=== PATIENT | female | born 1970 | race Native Hawaiian/Other Pacific Islander ===

== ENCOUNTER 2018-01-04 23:08 | Inpatient (IN) | payer MEDICARE, MEDICAID ==
[~2018-01-04] VITALS: Ht 157.5 cm; Wt 126.5 kg
[~2018-01-04 23:08] MED LIST: DIPH25CA39 PO; DULO20CA PO; FURO20TA PO; LEVE100012 PO; OMEP20TA44 PO; PHEN-250 PO; POTA8TAB2 PO; WARF1TAB36 PO
[2018-01-05 01:32] LABS: Basophils # (auto) 0.1 uL; Eosinophils # (auto) 0.2 uL; Hematocrit 42.4 % (36.0-46.0); Hemoglobin 13.9 g/dL (12.2-16.2); Lymphocytes # (auto) 1.6 uL; Mean Corpuscular Hemoglobin 31.7 pg (28.0-32.0); Mean Corpuscular Hgb Conc. 32.9 g/dL (32.0-36.0); Mean Corpuscular Volume 96.3 fL (80.0-100.0); Monocytes # (auto) 0.8 uL; Monocytes % (auto) 9.6 % (0.0-12.0); Neutrophils # (auto) 5.6 uL; Neutrophils % (auto) 67.4 % (37.0-80.0); Nucleated Red Blood Cells % 0.1 %; Platelet Count (auto) 185 10^3/uL (140-450); Red Cell Distribution Width 14.8 % (11.8-14.3); White Blood Cell 8.3 10^3/uL (4.4-10.8)
[2018-01-05 01:47] LABS: Alanine Aminotransferase 27 U/L (13-56); Albumin 3.4 g/dL (3.4-5.0); Anion Gap 9 (5-15); Aspartate Aminotransferase 37 U/L (15-37); BUN/Creatinine Ratio 21.9; Blood Urea Nitrogen 16 mg/dL (7-18); Calcium 8.1 mg/dL (8.5-10.1); Carbon Dioxide 24 mmol/L (21-32); Chloride 107 mmol/L (98-107); GFR African American 110 mL/min; GFR Non-African American 91 mL/min; Glucose 85 mg/dL (74-106); Potassium 3.8 mmol/L (3.5-5.1); Sodium 140 mmol/L (136-145)
[2018-01-05 01:52] LABS: Alkaline Phosphatase 145 U/L (45-117); Bilirubin, Total 0.4 mg/dL (0.2-1.0)
[2018-01-05] MEDS ORDERED: HYDROcodone-ACET 10/325MG TAB PO ONE (04:15)
[2018-01-05] MEDS ORDERED: ONDANSETRON HCL 4 MG/2 ML VIAL IV ONE (04:30)
[2018-01-05] MEDS ORDERED: NALBUPHINE HCL 10 MG/1ml INJECTION IV ONE (04:30)
[2018-01-05] MEDS ORDERED: LORazepam 2MG/ML-1ML VIAL ONE (05:09)
[2018-01-05] MEDS ORDERED: LEVETIRACETAM INJ 1,000 MG in D5W 5% 100 ML IV ONE (05:15)
[2018-01-05] MEDS ORDERED: LORazepam 2MG/ML-1ML VIAL IV ONE (05:15)
[2018-01-05] MEDS ORDERED: LEVETIRACETAM 500 MG/5ML INJ IV ONE (05:32)
[2018-01-05] MEDS ORDERED: ONDANSETRON HCL 4 MG/2 ML VIAL IV PRN (06:15)
[2018-01-05] MEDS ORDERED: NITROGLYCERIN 0.4 MG SL TAB SL PRN (06:15)
[2018-01-05] MEDS ORDERED: MORPHINE SULF INJ 2 MG/ML SYRINGE 1ML IV PRN (06:15)
[2018-01-05 08:05] LABS: INR 3.18 (0.9-1.15); Partial Thromboplastin Time 37.6 sec (23.78-33.04); Prothrombin Time 31.9 sec (9.27-12.13)
[2018-01-05 08:29] VITALS: BP 90/67
[2018-01-05 08:35] VITALS: BP 90/67
[2018-01-05] MEDS: DULoxetine HCL 30 MG CAP PO SCH ×2 (09:37→13:18)
[2018-01-05] MEDS: LORazepam 2MG/ML-1ML VIAL IV PRN (09:37)
[2018-01-05] MEDS: LEVETIRACETAM 500 MG TAB PO SCH ×3 (09:38→21:54)
[2018-01-05] MEDS: PHENYTOIN 100 MG/4 ML SUSP PO SCH ×3 (09:38→21:54)
[2018-01-05] MEDS: FUROSEMIDE 40 MG TAB PO SCH ×2 (09:38→13:19)
[2018-01-05] MEDS: FAMOTIDINE 20 MG TAB PO SCH ×3 (09:39→21:54)
[2018-01-05] MEDS ORDERED: PHENYTOIN SODIUM 100 MG CAP PO SCH (10:00)
[2018-01-05] MEDS ORDERED: FURO40TA4 PO (10:24)
[2018-01-05] MEDS ORDERED: PHEN-250 PO (10:24)
[2018-01-05] MEDS ORDERED: DIPH50TA9 PO (10:24)
[2018-01-05] MEDS ORDERED: POTA1TAB61 PO (10:24)
[2018-01-05 12:00] VITALS: BP 105/65
[2018-01-05] MEDS: ACETAMINOPHEN 325 MG TAB PO PRN (16:05)
[2018-01-05 16:11] VITALS: BP 108/61
[2018-01-05] MEDS ORDERED: POTASSIUM CHL 20 Meq TABLET PO ONE (16:45)
[2018-01-05] MEDS ORDERED: WARFARIN SODIUM 2.5 MG TAB PO ONE ×2 (17:00→18:00)
[2018-01-05] MEDS: diphenhdrAMINE HCL 25 MG CAP PO PRN (17:38)
[2018-01-05] MEDS: Ensure Enlive Strawberry 8oz Bottle PO SCH (17:39)
[2018-01-05 22:00] VITALS: BP 122/62
[2018-01-05] MEDS ORDERED: POTASSIUM CHL 20 Meq TABLET PO SCH (22:00)
[2018-01-06] MEDS: HYDROcodone-ACET 5/325MG TAB PO PRN ×2 (00:22→06:14)
[2018-01-06] MEDS: TEMAZEPAM 15 MG CAP PO PRN (00:27)
[2018-01-06] MEDS: ACETAMINOPHEN 325 MG TAB PO PRN (04:29)
[2018-01-06 04:48] VITALS: BP 128/62
[2018-01-06 06:07] LABS: Basophils # (auto) 0.1 uL; Basophils % (auto) 0.7 % (0.0-2.0); Eosinophils # (auto) 0.3 uL; Eosinophils % (auto) 3.2 % (0.0-7.0); Hematocrit 40.1 % (36.0-46.0); Lymphocytes # (auto) 1.6 uL; Lymphocytes % (auto) 20.1 % (10.0-50.0); Mean Corpuscular Hemoglobin 31.1 pg (28.0-32.0); Mean Corpuscular Hgb Conc. 32.5 g/dL (32.0-36.0); Mean Corpuscular Volume 95.7 fL (80.0-100.0); Monocytes # (auto) 0.6 uL; Monocytes % (auto) 7.6 % (0.0-12.0); Neutrophils # (auto) 5.3 uL; Neutrophils % (auto) 68.4 % (37.0-80.0); Platelet Count (auto) 169 10^3/uL (140-450); Red Blood Cells 4.19 10^6/uL (4.0-5.20); Red Cell Distribution Width 15.1 % (11.8-14.3); White Blood Cell 7.8 10^3/uL (4.4-10.8)
[2018-01-06 06:21] LABS: INR 2.05 (0.9-1.15); Prothrombin Time 21.1 sec (9.27-12.13)
[2018-01-06 06:23] LABS: Albumin 3.1 g/dL (3.4-5.0); Calcium 8.1 mg/dL (8.5-10.1); Potassium 3.9 mmol/L (3.5-5.1)
[2018-01-06 06:25] LABS: BUN/Creatinine Ratio 20.3
[2018-01-06] MEDS: LORazepam 2MG/ML-1ML VIAL IV PRN (06:25)
[2018-01-06 06:40] LABS: Bilirubin, Total 0.5 mg/dL (0.2-1.0); Total Protein 7.3 g/dL (6.4-8.2)
[2018-01-06] MEDS: Ensure Enlive Strawberry 8oz Bottle PO SCH ×3 (08:22→17:14)
[2018-01-06 09:00] VITALS: BP 109/76
[2018-01-06] MEDS: DULoxetine HCL 30 MG CAP PO SCH (09:49)
[2018-01-06] MEDS: PHENYTOIN 100 MG/4 ML SUSP PO SCH (09:49)
[2018-01-06] MEDS: POTASSIUM CHL 20 Meq TABLET PO SCH (09:50)
[2018-01-06] MEDS: FUROSEMIDE 40 MG TAB PO SCH (09:50)
[2018-01-06] MEDS: FAMOTIDINE 20 MG TAB PO SCH ×2 (09:50→21:33)
[2018-01-06] MEDS: LEVETIRACETAM 500 MG TAB PO SCH ×2 (09:51→21:33)
[2018-01-06 13:00] VITALS: BP 106/66
[2018-01-06] MEDS: MORPHINE SULFATE 4 MG/ML SYR/VIAL IV PRN ×2 (13:23→19:57)
[2018-01-06 17:00] VITALS: BP 102/66
[2018-01-06] MEDS ORDERED: WARFARIN SODIUM 5 MG TAB PO ONE (17:00)
[2018-01-06 21:00] VITALS: BP 131/65
[2018-01-07] MEDS: MORPHINE SULFATE 4 MG/ML SYR/VIAL IV PRN ×3 (02:04→18:46)
[2018-01-07 04:05] VITALS: BP 119/72
[2018-01-07] MEDS: ACETAMINOPHEN 325 MG TAB PO PRN ×2 (05:46→21:05)
[2018-01-07 06:13] LABS: INR 1.73 (0.9-1.15); Partial Thromboplastin Time 36.2 sec (23.78-33.04); Prothrombin Time 17.9 sec (9.27-12.13)
[2018-01-07 08:00] VITALS: BP 75/72
[2018-01-07] MEDS: Ensure Enlive Strawberry 8oz Bottle PO SCH ×3 (08:00→18:00)
[2018-01-07 09:00] VITALS: BP 135/73
[2018-01-07] MEDS ORDERED: MORPHINE SULFATE 4 MG/ML SYR/VIAL ONE (09:42)
[2018-01-07] MEDS: FUROSEMIDE 40 MG TAB PO SCH (09:56)
[2018-01-07] MEDS: FAMOTIDINE 20 MG TAB PO SCH ×2 (09:56→22:38)
[2018-01-07] MEDS: POTASSIUM CHL 20 Meq TABLET PO SCH (09:58)
[2018-01-07] MEDS: DULoxetine HCL 30 MG CAP PO SCH (10:00)
[2018-01-07] MEDS: LEVETIRACETAM 500 MG TAB PO SCH ×2 (10:01→22:38)
[2018-01-07 13:00] VITALS: BP 119/76
[2018-01-07 17:00] VITALS: BP 125/68
[2018-01-07] MEDS ORDERED: WARFARIN SODIUM 2.5 MG TAB PO ONE (17:00)
[2018-01-07 19:39] LABS: Alcohol, Urine < 3.0 mg/dL (0-5); Amphetamine Screen, Urine NEGATIVE (NEGATIVE); Barbiturate Scree,Urine NEGATIVE (NEGATIVE); Benzodiazephine Screen, Urine NEGATIVE (NEGATIVE); Cannabinoid Screen, Urine NEGATIVE (NEGATIVE); Cocaine Screen, Urine NEGATIVE (NEGATIVE); Opiate Scree,Urine POSITIVE (NEGATIVE); Phencyclidine Screen, Urine NEGATIVE (NEGATIVE)
[2018-01-07 22:00] VITALS: BP 100/71
[2018-01-08] MEDS: MORPHINE SULFATE 4 MG/ML SYR/VIAL IV PRN ×2 (02:34→20:36)
[2018-01-08 05:00] VITALS: BP 104/71
[2018-01-08 05:39] LABS: Basophils # (auto) 0 uL; Basophils % (auto) 0.4 % (0.0-2.0); Eosinophils # (auto) 0.2 uL; Eosinophils % (auto) 3.5 % (0.0-7.0); Hematocrit 39.1 % (36.0-46.0); Hemoglobin 12.9 g/dL (12.2-16.2); Lymphocytes # (auto) 1.1 uL; Lymphocytes % (auto) 16.3 % (10.0-50.0); Mean Corpuscular Hemoglobin 31.6 pg (28.0-32.0); Mean Corpuscular Hgb Conc. 32.9 g/dL (32.0-36.0); Monocytes # (auto) 0.7 uL; Monocytes % (auto) 9.3 % (0.0-12.0); Neutrophils # (auto) 4.9 uL; Neutrophils % (auto) 70.5 % (37.0-80.0); Platelet Count (auto) 153 10^3/uL (140-450); Red Blood Cells 4.08 10^6/uL (4.0-5.20); Red Cell Distribution Width 14.7 % (11.8-14.3)
[2018-01-08 05:50] LABS: INR 1.53 (0.9-1.15)
[2018-01-08 08:00] VITALS: BP 98/71
[2018-01-08] MEDS: Ensure Enlive Strawberry 8oz Bottle PO SCH ×3 (08:00→18:08)
[2018-01-08] MEDS ORDERED: ADENOSINE 104 MG in GIVE UN-DILUTED 0 ML IV STA (09:02)
[2018-01-08] MEDS: LEVETIRACETAM 500 MG TAB PO SCH ×2 (10:00→21:35)
[2018-01-08] MEDS: FUROSEMIDE 40 MG TAB PO SCH (10:00)
[2018-01-08] MEDS: FAMOTIDINE 20 MG TAB PO SCH ×2 (10:00→21:32)
[2018-01-08] MEDS: POTASSIUM CHL 20 Meq TABLET PO SCH (11:55)
[2018-01-08] MEDS: DULoxetine HCL 30 MG CAP PO SCH (11:55)
[2018-01-08 12:00] VITALS: BP 104/68
[2018-01-08] MEDS: ACETAMINOPHEN 325 MG TAB PO PRN (12:22)
[2018-01-08 17:00] VITALS: BP 96/63
[2018-01-08] MEDS ORDERED: WARFARIN SODIUM 10 MG TAB PO ONE (17:00)
[2018-01-08] MEDS: diphenhdrAMINE HCL 25 MG CAP PO PRN (20:34)
[2018-01-08] MEDS: TEMAZEPAM 15 MG CAP PO PRN (21:32)
[2018-01-08] MEDS: SODIUM CHLORIDE 0.9% 1,000 ML IV SCH (21:38)
[2018-01-08 22:00] VITALS: BP 117/66
[2018-01-09] MEDS: LORazepam 2MG/ML-1ML VIAL IV PRN (04:05)
[2018-01-09] MEDS: MORPHINE SULFATE 4 MG/ML SYR/VIAL IV PRN ×4 (04:14→22:02)
[2018-01-09 06:04] LABS: INR 1.72 (0.9-1.15); Prothrombin Time 17.8 sec (9.27-12.13)
[2018-01-09] MEDS: Ensure Enlive Strawberry 8oz Bottle PO SCH ×3 (08:00→18:10)
[2018-01-09] MEDS: FAMOTIDINE 20 MG TAB PO SCH ×2 (08:49→21:45)
[2018-01-09] MEDS: DULoxetine HCL 30 MG CAP PO SCH (08:49)
[2018-01-09] MEDS: POTASSIUM CHL 20 Meq TABLET PO SCH (08:51)
[2018-01-09] MEDS: LEVETIRACETAM 500 MG TAB PO SCH ×2 (08:51→21:45)
[2018-01-09] MEDS: FUROSEMIDE 40 MG TAB PO SCH (08:52)
[2018-01-09 09:00] VITALS: BP 120/70
[2018-01-09] MEDS ORDERED: MORPHINE SULFATE 4 MG/ML SYR/VIAL ONE (09:00)
[2018-01-09] MEDS: SODIUM CHLORIDE 0.9% 1,000 ML IV SCH ×2 (09:24→22:25)
[2018-01-09 13:00] VITALS: BP 119/68
[2018-01-09 16:56] VITALS: BP 104/63
[2018-01-09] MEDS ORDERED: WARFARIN SODIUM 2 MG TAB PO ONE (17:00)
[2018-01-09] MEDS: diphenhdrAMINE HCL 25 MG CAP PO PRN (22:03)
[2018-01-10] MEDS: MORPHINE SULFATE 4 MG/ML SYR/VIAL IV PRN ×3 (04:58→21:28)
[2018-01-10 05:00] VITALS: BP 122/72
[2018-01-10] MEDS: diphenhdrAMINE HCL 25 MG CAP PO PRN ×2 (06:17→21:28)
[2018-01-10 07:13] LABS: INR 2.29 (0.9-1.15); Partial Thromboplastin Time 33.6 sec (23.78-33.04); Prothrombin Time 23.4 sec (9.27-12.13)
[2018-01-10] MEDS: Ensure Enlive Strawberry 8oz Bottle PO SCH ×3 (08:00→18:00)
[2018-01-10 08:13] VITALS: BP 142/81
[2018-01-10] MEDS ORDERED: ADENOSINE 107 MG in GIVE UN-DILUTED 0 ML IV ONE (08:45)
[2018-01-10] MEDS: DULoxetine HCL 30 MG CAP PO SCH (08:55)
[2018-01-10] MEDS: FAMOTIDINE 20 MG TAB PO SCH ×2 (08:56→23:12)
[2018-01-10] MEDS: LEVETIRACETAM 500 MG TAB PO SCH ×2 (08:56→21:29)
[2018-01-10 09:10] VITALS: BP 114/66
[2018-01-10] MEDS ORDERED: HYDROcodone-ACET 5/325MG TAB PO PRN (09:15)
[2018-01-10] MEDS: LORazepam 2MG/ML-1ML VIAL IV PRN (09:35)
[2018-01-10] MEDS: POTASSIUM CHL 20 Meq TABLET PO SCH (11:06)
[2018-01-10] MEDS: FUROSEMIDE 40 MG TAB PO SCH (11:07)
[2018-01-10] MEDS: SODIUM CHLORIDE 0.9% 1,000 ML IV SCH (11:45)
[2018-01-10 13:00] VITALS: BP 127/74
[2018-01-10 16:20] VITALS: BP 120/68
[2018-01-10] MEDS ORDERED: WARFARIN SODIUM 2.5 MG TAB PO ONE (17:00)
[2018-01-10] MEDS ORDERED: WARFARIN SODIUM 2 MG TAB PO ONE (17:00)
[2018-01-10 21:30] VITALS: BP 118/88
[2018-01-11] MEDS: SODIUM CHLORIDE 0.9% 1,000 ML IV SCH (01:05)
[2018-01-11 05:00] VITALS: BP 105/82
[2018-01-11] MEDS: MORPHINE SULFATE 4 MG/ML SYR/VIAL IV PRN (05:47)
[2018-01-11 05:56] VITALS: BP 125/70
[2018-01-11 06:11] LABS: Basophils # (auto) 0 uL; Basophils % (auto) 0.4 % (0.0-2.0); Eosinophils # (auto) 0.2 uL; Eosinophils % (auto) 3.5 % (0.0-7.0); Hematocrit 38.5 % (36.0-46.0); Hemoglobin 12.9 g/dL (12.2-16.2); Lymphocytes % (auto) 14.7 % (10.0-50.0); Mean Corpuscular Hemoglobin 31.9 pg (28.0-32.0); Mean Corpuscular Hgb Conc. 33.4 g/dL (32.0-36.0); Mean Corpuscular Volume 95.3 fL (80.0-100.0); Monocytes # (auto) 0.6 uL; Monocytes % (auto) 8.3 % (0.0-12.0); Neutrophils # (auto) 5.1 uL; Neutrophils % (auto) 73.1 % (37.0-80.0); Nucleated Red Blood Cells % 0.1 %; Platelet Count (auto) 147 10^3/uL (140-450); Red Blood Cells 4.04 10^6/uL (4.0-5.20); Red Cell Distribution Width 14.5 % (11.8-14.3)
[2018-01-11 06:21] LABS: INR 2.44 (0.9-1.15); Prothrombin Time 24.8 sec (9.27-12.13)
[2018-01-11 06:32] LABS: Albumin 3.1 g/dL (3.4-5.0); BUN/Creatinine Ratio 23.1; Calcium 7.8 mg/dL (8.5-10.1); Potassium 3.9 mmol/L (3.5-5.1)
[2018-01-11 06:34] LABS: Bilirubin, Total 0.6 mg/dL (0.2-1.0); Total Protein 7.2 g/dL (6.4-8.2)
[2018-01-11 09:00] VITALS: BP 112/64
[2018-01-11] MEDS: FAMOTIDINE 20 MG TAB PO SCH (09:24)
[2018-01-11] MEDS: DULoxetine HCL 30 MG CAP PO SCH (09:24)
[2018-01-11] MEDS: LEVETIRACETAM 500 MG TAB PO SCH (09:25)
[2018-01-11] MEDS: POTASSIUM CHL 20 Meq TABLET PO SCH (09:25)
[2018-01-11] MEDS: FUROSEMIDE 40 MG TAB PO SCH (09:25)
[2018-01-11] MEDS: Ensure Enlive Strawberry 8oz Bottle PO SCH (09:33)
[2018-01-11 13:00] VITALS: BP 143/66
[2018-01-11 13:29] VITALS: BP 143/66
[2018-01-11] MEDS ORDERED: WARFARIN SODIUM 2.5 MG TAB PO ONE (17:00)
== END 2018-01-11 15:30 | disposition home or self-care (01) | DRG 101 ==
LOC: ER 23:08 → EDBD 23:08 → TELE 23:09 → TELE-WESTW 01-05 08:34
PROVIDERS: ADMIT Nurse Practitioner; ATTEND Family Medicine
DX: G40.909 Epilepsy, unspecified, not intractable, without status epilepticus (principal); I69.351 Hemiplegia and hemiparesis following cerebral infarction affecting right dominant side; Z68.43 Body mass index [BMI] 50.0-59.9, adult; E66.01 Morbid (severe) obesity due to excess calories; I11.0 Hypertensive heart disease with heart failure; I50.9 Heart failure, unspecified; I48.2 Chronic atrial fibrillation; F32.9 Major depressive disorder, single episode, unspecified; M54.5 Low back pain; I08.0 Rheumatic disorders of both mitral and aortic valves; G43.909 Migraine, unspecified, not intractable, without status migrainosus; G89.29 Other chronic pain; H55.00 Unspecified nystagmus; I25.10 Atherosclerotic heart disease of native coronary artery without angina pectoris; Z95.1 Presence of aortocoronary bypass graft; Z95.2 Presence of prosthetic heart valve; Z74.01 Bed confinement status; I69.322 Dysarthria following cerebral infarction; Z88.6 Allergy status to analgesic agent
CPT/HCPCS: 36415; 36600; 70450; 71045; 78452; 80053; 80307; 80320; 82805; 83880; 84484; 85025; 85379; 85610; 85730; 92610; 93005; 93017; 93306; 93886; 94761; 96365; 96375; 97163; J0153; J2405; J7060

== ENCOUNTER 2018-03-25 21:06 | Emergency (ER) | payer MEDICARE, MEDICAID ==
[~2018-03-25] VITALS: Ht 165.1 cm; Wt 122.5 kg
[~2018-03-25 21:06] MED LIST changes: -DIPH25CA39 PO; +DIPH50TA9 PO; -FURO20TA PO; +FURO40TA4 PO; +POTA1TAB61 PO; -POTA8TAB2 PO
[2018-03-25] MEDS ORDERED: NITROGLYCERIN 0.4 MG SL TAB SL ONE (21:45)
[2018-03-25] MEDS ORDERED: MORPHINE SULFATE 4 MG/ML SYR/VIAL IV ONE (21:45)
[2018-03-25] MEDS ORDERED: ASPirin-EC 325mg tab PO ONE (21:45)
[2018-03-25] MEDS ORDERED: MORPHINE SULFATE 10 MG/ML INJ 1ML SDV IV ONE (22:00)
[2018-03-25 22:04] LABS: Basophils # (auto) 0 uL; Basophils % (auto) 0.6 % (0.0-2.0); Eosinophils # (auto) 0.2 uL; Eosinophils % (auto) 2.6 % (0.0-7.0); Hematocrit 41.9 % (36.0-46.0); Hemoglobin 13.9 g/dL (12.2-16.2); Lymphocytes # (auto) 1.5 uL; Mean Corpuscular Hemoglobin 32.3 pg (28.0-32.0); Mean Corpuscular Hgb Conc. 33.1 g/dL (32.0-36.0); Mean Corpuscular Volume 97.4 fL (80.0-100.0); Monocytes # (auto) 0.7 uL; Monocytes % (auto) 9.1 % (0.0-12.0); Neutrophils % (auto) 67.7 % (37.0-80.0); Nucleated Red Blood Cells % 0.1 %; Platelet Count (auto) 156 10^3/uL (140-450); Red Cell Distribution Width 14.2 % (11.8-14.3); White Blood Cell 7.4 10^3/uL (4.4-10.8)
[2018-03-25 22:19] LABS: Alanine Aminotransferase 19 U/L (13-56); Albumin 3.3 g/dL (3.4-5.0); Anion Gap 7 (5-15); Aspartate Aminotransferase 24 U/L (15-37); Blood Urea Nitrogen 9 mg/dL (7-18); Calcium 7.3 mg/dL (8.5-10.1); Carbon Dioxide 26 mmol/L (21-32); Chloride 110 mmol/L (98-107); GFR African American 97 mL/min; GFR Non-African American 80 mL/min; Glucose 98 mg/dL (74-106); Magnesium 1.8 mg/dL (1.6-2.6); Potassium 3.8 mmol/L (3.5-5.1); Sodium 143 mmol/L (136-145)
[2018-03-25 22:23] LABS: Alkaline Phosphatase 154 U/L (45-117); Bilirubin, Total 0.4 mg/dL (0.2-1.0); Total Protein 7.3 g/dL (6.4-8.2)
[2018-03-25 23:35] LABS: Urine Bacteria NONE SEEN /hpf (None Seen); Urine Blood 1+ /uL (Negative); Urine Mucus FEW (None Seen); Urine Specific Gravity 1.019 (1.001-1.035); Urine WBC <1 /hpf (0 - 5)
[2018-03-26 02:00] VITALS: BP 106/62
[2018-03-26] MEDS ORDERED: HYDROcodone-ACET 10/325MG TAB PO ONE (02:15)
== END 2018-03-26 02:33 | disposition home or self-care (01) ==
LOC: EDBD 21:06 → ER 21:06
DX: R07.89 Other chest pain (principal); G89.4 Chronic pain syndrome; M79.601 Pain in right arm; I48.91 Unspecified atrial fibrillation; I25.810 Atherosclerosis of coronary artery bypass graft(s) without angina pectoris; I50.9 Heart failure, unspecified; Z88.8 Allergy status to other drugs, medicaments and biological substances; Z95.1 Presence of aortocoronary bypass graft; Z86.73 Personal history of transient ischemic attack (TIA), and cerebral infarction without residual deficits; Z79.01 Long term (current) use of anticoagulants; Z79.899 Other long term (current) drug therapy
CPT/HCPCS: 36415; 70450; 71045; 72125; 80053; 81001; 83735; 84484; 85025; 93005; 94761; 96374; 99285; J2270

== ENCOUNTER 2018-06-05 03:13 | Emergency (ER) | payer MEDICAID, MEDICARE ==
[~2018-06-05] VITALS: Ht 165.1 cm; Wt 120.2 kg
[2018-06-05 03:36] VITALS: BP 109/73
== END 2018-06-05 07:23 | disposition home or self-care (01) ==
LOC: ER 03:13
DX: H10.212 Acute toxic conjunctivitis, left eye (principal)

== ENCOUNTER 2019-04-10 18:35 | Emergency (ER) | payer MEDICARE, MEDICAID ==
[~2019-04-10] VITALS: Ht 165.1 cm; Wt 154.2 kg
[2019-04-10] MEDS ORDERED: IPRATROPIUM BROM 0.5 MG/2.5ML INH SOL NEB ONE ×2 (19:00→19:15)
[2019-04-10] MEDS ORDERED: ALBUTEROL SULF 2.5 MG/0.5ML(0.5%) NEB SOLN NEB ONE ×2 (19:00→19:15)
[2019-04-10] MEDS ORDERED: methylPREDNISolone SOD SUCC 125 MG/2 ML VL IV ONE (19:00)
[2019-04-10] MEDS ORDERED: FUROSEMIDE 20 MG/2 ML VIAL IV ONE (19:00)
[2019-04-10] MEDS ORDERED: IPRATROPIUM BROM 0.5 MG/2.5ML INH SOL ONE (19:18)
[2019-04-10] MEDS ORDERED: ALBUTEROL SULF 2.5 MG/0.5ML(0.5%) NEB SOLN ONE (19:18)
[2019-04-10] MEDS ORDERED: ONDANSETRON HCL 4 MG/2 ML VIAL IV ONE (19:45)
[2019-04-10] MEDS ORDERED: MORPHINE SULFATE 4 MG/ML SYR/VIAL IV ONE ×2 (19:45→23:00)
[2019-04-10 19:48] LABS: Basophils # (auto) 0.1 uL; Basophils % (auto) 0.9 % (0.0-2.0); Eosinophils # (auto) 0.3 uL; Hematocrit 40.6 % (36.0-46.0); Hemoglobin 12.7 g/dL (12.2-16.2); Lymphocytes # (auto) 0.9 uL; Lymphocytes % (auto) 15.5 % (10.0-50.0); Mean Corpuscular Hemoglobin 32.2 pg (28.0-32.0); Mean Corpuscular Hgb Conc. 31.4 g/dL (32.0-36.0); Mean Corpuscular Volume 102.6 fL (80.0-100.0); Monocytes # (auto) 0.6 uL; Neutrophils # (auto) 3.9 uL; Neutrophils % (auto) 68.6 % (37.0-80.0); Nucleated Red Blood Cells % 0.1 %; Platelet Count (auto) 116 10^3/uL (140-450); Red Blood Cells 3.95 10^6/uL (4.0-5.20); Red Cell Distribution Width 16.2 % (11.8-14.3); White Blood Cell 5.7 10^3/uL (4.4-10.8)
[2019-04-10 20:00] LABS: INR 1.51 (0.9-1.15); Partial Thromboplastin Time 33.8 sec (23.64-32.05)
[2019-04-10 20:02] LABS: Alanine Aminotransferase 20 U/L (13-56); Albumin 4.2 g/dL (3.4-5.0); Anion Gap 7 (5-15); Aspartate Aminotransferase 40 U/L (15-37); Blood Urea Nitrogen 23 mg/dL (7-18); Calcium 8.1 mg/dL (8.5-10.1); Carbon Dioxide 26 mmol/L (21-32); Chloride 110 mmol/L (98-107); GFR African American 57 mL/min; GFR Non-African American 48 mL/min; Glucose 88 mg/dL (74-106); Magnesium 2.1 mg/dL (1.6-2.6); Potassium 3.8 mmol/L (3.5-5.1); Sodium 143 mmol/L (136-145)
[2019-04-10 20:05] LABS: Alkaline Phosphatase 121 U/L (45-117); Bilirubin, Total 1.3 mg/dL (0.2-1.0)
[2019-04-10 20:23] LABS: Urine Bacteria FEW /hpf (None Seen); Urine Blood Negative /uL (Negative); Urine Hyaline Cast FEW /lpf (0 - 2); Urine Mucus FEW (None Seen); Urine Pregnacy Test Negative (Negative); Urine Specific Gravity 1.011 (1.001-1.035); Urine WBC <1 /hpf (0 - 5)
[2019-04-10 20:42] LABS: Alcohol, Urine < 3.0 mg/dL (0-5); Amphetamine Screen, Urine NEGATIVE (NEGATIVE); Barbiturate Scree,Urine NEGATIVE (NEGATIVE); Benzodiazephine Screen, Urine POSITIVE (NEGATIVE); Cannabinoid Screen, Urine NEGATIVE (NEGATIVE); Cocaine Screen, Urine NEGATIVE (NEGATIVE)
[2019-04-10 20:49] LABS: Opiate Scree,Urine POSITIVE (NEGATIVE); Phencyclidine Screen, Urine NEGATIVE (NEGATIVE)
[2019-04-11 03:44] VITALS: BP 104/80
== END 2019-04-11 01:45 | disposition home or self-care (01) ==
LOC: ER 18:36
DX: J44.9 Chronic obstructive pulmonary disease, unspecified (principal); J98.01 Acute bronchospasm; I50.9 Heart failure, unspecified; I48.20 Chronic atrial fibrillation, unspecified; N18.9 Chronic kidney disease, unspecified; T40.601A Poisoning by unspecified narcotics, accidental (unintentional), initial encounter; G89.4 Chronic pain syndrome; Z86.73 Personal history of transient ischemic attack (TIA), and cerebral infarction without residual deficits; Z95.1 Presence of aortocoronary bypass graft; Y92.89 Other specified places as the place of occurrence of the external cause
CPT/HCPCS: 36415; 71045; 76705; 80053; 80307; 80320; 81001; 81025; 83605; 83735; 83880; 84484; 85025; 85379; 85610; 85730; 93005; 94640; 96374; 96375; 96376; 99284; J1940; J2270; J2405; J2930; J7611; J7644

== ENCOUNTER 2019-04-13 17:33 | Inpatient (IN) | payer MEDICARE, MEDICAID ==
[~2019-04-13] VITALS: Ht 165.1 cm; Wt 138.2 kg
[2019-04-13] MEDS ORDERED: FUROSEMIDE 40 MG/4 ML VIAL IV ONE (19:00)
[2019-04-13 19:33] LABS: Basophils # (auto) 0 uL; Basophils % (auto) 0.6 % (0.0-2.0); Eosinophils # (auto) 0.3 uL; Eosinophils % (auto) 4.3 % (0.0-7.0); Hematocrit 37.4 % (36.0-46.0); Lymphocytes # (auto) 1.5 uL; Mean Corpuscular Hemoglobin 31.9 pg (28.0-32.0); Mean Corpuscular Hgb Conc. 32.1 g/dL (32.0-36.0); Mean Corpuscular Volume 99.1 fL (80.0-100.0); Monocytes # (auto) 0.9 uL; Monocytes % (auto) 13.1 % (0.0-12.0); Nucleated Red Blood Cells % 0.4 %; Platelet Count (auto) 115 10^3/uL (140-450); Red Blood Cells 3.78 10^6/uL (4.0-5.20); Red Cell Distribution Width 15.7 % (11.8-14.3); White Blood Cell 6.7 10^3/uL (4.4-10.8)
[2019-04-13 20:13] LABS: INR 3.85 (0.9-1.15); Partial Thromboplastin Time 36.2 sec (23.64-32.05)
[2019-04-13] MEDS ORDERED: ALBUTEROL SULF 2.5 MG/0.5ML(0.5%) NEB SOLN NEB ONE (20:30)
[2019-04-13] MEDS ORDERED: IPRATROPIUM BROM 0.5 MG/2.5ML INH SOL NEB ONE (20:30)
[2019-04-13] MEDS ORDERED: methylPREDNISolone SOD SUCC 125 MG/2 ML VL IV ONE (20:30)
[2019-04-13 21:59] LABS: Albumin 3.8 g/dL (3.4-5.0); BUN/Creatinine Ratio 25.9; Calcium 8.1 mg/dL (8.5-10.1); Magnesium 2.1 mg/dL (1.6-2.6); Potassium 3.9 mmol/L (3.5-5.1)
[2019-04-13] MEDS ORDERED: HYDROcodone-ACET 10/325MG TAB PO ONE (22:00)
[2019-04-13 22:03] LABS: Bilirubin, Total 0.9 mg/dL (0.2-1.0); Total Protein 7.7 g/dL (6.4-8.2)
[2019-04-13 23:28] LABS: Urine Bacteria NONE SEEN /hpf (None Seen); Urine Blood 2+ /uL (Negative); Urine Specific Gravity 1.016 (1.001-1.035); Urine WBC 4 /hpf (0 - 5)
[2019-04-14] VITALS (9 sets, daily range): BP systolic 102–132; BP diastolic 54–78
[2019-04-14] MEDS ORDERED: ALBUTEROL SULF 2.5 MG/0.5ML(0.5%) NEB SOLN NEB PRN (01:00)
[2019-04-14] MEDS ORDERED: ONDANSETRON HCL 4 MG/2 ML VIAL IV PRN (01:00)
[2019-04-14] MEDS ORDERED: TEMAZEPAM 15 MG CAP PO PRN (01:00)
[2019-04-14] MEDS ORDERED: NITROGLYCERIN 0.4 MG SL TAB SL PRN (01:00)
[2019-04-14] MEDS ORDERED: HYDROcodone-ACET 10/325MG TAB PO ONE (01:00)
[2019-04-14] MEDS ORDERED: ACETAMINOPHEN 325 MG TAB PO PRN (01:00)
[2019-04-14] MEDS ORDERED: MORPHINE SULF INJ 2 MG/ML SYRINGE 1ML IV PRN (01:00)
[2019-04-14] MEDS: HYDROcodone-ACET 5/325MG TAB PO PRN (03:10)
--- NOTE | 2019-04-14 03:43 | NUR ---
received pt from er nurse poc reviewed
--- NOTE | 2019-04-14 03:43 | NUR ---
pt awoke alert, call light within reach bed alarm intact, seizure precautions in place, side rails padded suction set up on o2 2l, c/o headache 11/25 will medicate as ordered, all questions and concerns addressed
--- NOTE | 2019-04-14 03:46 | NUR ---
mrsa swab sent to lab per protocol, pt had prior admission within one month,
[2019-04-14] MEDS: FUROSEMIDE 40 MG/4 ML VIAL IV SCH ×2 (05:59→18:00)
[2019-04-14] MEDS: GABAPENTIN 300 MG CAP PO SCH ×2 (06:08→21:51)
--- NOTE | 2019-04-14 06:45 | NUR ---
Respiratory note: HR 89, RR 16, SPO2 94% ON 2 L NC, BS CLEAR AND DIMINISHED. PRN MED NEB TX NOT INDICATED. NO SIGNS OR SYMPTOMS OF RESPIRATORY DISTRESS NOTED AT THIS TIME.PT INFORMED TO HIT CALL BUTTON IF FEELING SOB OR WHEEZING.
--- NOTE | 2019-04-14 07:06 | NUR ---
Report given to KAYLA CHIN. POC reviewed.
[2019-04-14 07:10] LABS: INR 3.3 (0.9-1.15); Partial Thromboplastin Time 37.6 sec (23.64-32.05)
--- NOTE | 2019-04-14 07:12 | NUR ---
Opening Shift Note Assumed care of patient, awake and alert. No S/S of distress/SOB or pain. Instructed on POC and to call for assist PRN, will continue to monitor for changes Q1hr and PRN. Bed set in lowest locked position with seizure precautions in place, call light is within reach.
[2019-04-14] MEDS: DULoxetine HCL 30 MG CAP PO SCH (10:17)
[2019-04-14] MEDS: PHENYTOIN SODIUM 100 MG CAP PO SCH ×2 (10:17→21:51)
[2019-04-14] MEDS: PANTOPRAZOLE 40 MG TAB PO SCH (10:17)
[2019-04-14] MEDS: LEVETIRACETAM 500 MG TAB PO SCH ×2 (10:17→21:51)
[2019-04-14] MEDS ORDERED: ADENOSINE 114 MG in GIVE UN-DILUTED 0 ML IV STA (11:00)
[2019-04-14] MEDS ORDERED: CARVEDILOL 3.125 MG TAB PO ONE (13:30)
[2019-04-14] MEDS: KETOROLAC TROMETH 30 MG/ML 1ML VIAL IV PRN ×2 (14:12→22:17)
--- NOTE | 2019-04-14 15:08 | NUR ---
Dr. Richey, Informatics Coordinator, at bedside; new orders received.
--- NOTE | 2019-04-14 15:09 | NUR ---
Dr. Ackerman, Hospitalist, at bedside; new orders received.
[2019-04-14] MEDS: ALBUTEROL SULF 2.5 MG/0.5ML(0.5%) NEB SOLN NEB SCH (19:31)
[2019-04-14] MEDS: IPRATROPIUM BROM 0.5 MG/2.5ML INH SOL NEB SCH (19:31)
[2019-04-14] MEDS: SACUBITRIL-VALSARTAN 24mg/26mg TAB PO SCH (21:51)
[2019-04-14] MEDS: CARVEDILOL 3.125 MG TAB PO SCH (21:52)
[2019-04-15] MEDS: IPRATROPIUM BROM 0.5 MG/2.5ML INH SOL NEB SCH ×4 (00:55→18:50)
[2019-04-15] MEDS: ALBUTEROL SULF 2.5 MG/0.5ML(0.5%) NEB SOLN NEB SCH ×4 (00:55→18:50)
[2019-04-15] MEDS: HYDROcodone-ACET 5/325MG TAB PO PRN ×3 (03:44→12:46)
[2019-04-15 05:00] VITALS: BP 101/80
--- NOTE | 2019-04-15 05:07 | NUR ---
HOSPITALIST PAGED PATIENT STATES SHE WANTS TO LEAVE AMA. PATIENT REPORTING 10/10 PAIN. ADVISED PATIENT THAT I WOULD PAGE REMOTE INPATIENT CODER PHYSICIAN REGARDING PAIN MEDICATION, PATIENT REFUSES AND STATES SHE WANTS TO GO HOME. OFFERED PATIENT A HEATING PACK AND SHE REFUSES. YELLING "NO" AT ME AND "I WANT TO GO HOME".
[2019-04-15 05:55] LABS: Basophils # (auto) 0 uL; Basophils % (auto) 0.6 % (0.0-2.0); Eosinophils # (auto) 0.2 uL; Eosinophils % (auto) 3.4 % (0.0-7.0); Hematocrit 35.5 % (36.0-46.0); Hemoglobin 11.6 g/dL (12.2-16.2); Lymphocytes # (auto) 1.3 uL; Lymphocytes % (auto) 18.6 % (10.0-50.0); Mean Corpuscular Hemoglobin 31.7 pg (28.0-32.0); Mean Corpuscular Hgb Conc. 32.6 g/dL (32.0-36.0); Mean Corpuscular Volume 97.2 fL (80.0-100.0); Monocytes # (auto) 0.7 uL; Monocytes % (auto) 9.6 % (0.0-12.0); Neutrophils # (auto) 4.7 uL; Neutrophils % (auto) 67.8 % (37.0-80.0); Nucleated Red Blood Cells % 0.1 %; Platelet Count (auto) 129 10^3/uL (140-450); Red Blood Cells 3.66 10^6/uL (4.0-5.20); Red Cell Distribution Width 15.6 % (11.8-14.3); White Blood Cell 6.9 10^3/uL (4.4-10.8)
[2019-04-15 06:08] LABS: Anion Gap 5 (5-15); BUN/Creatinine Ratio 33.3; Blood Urea Nitrogen 25 mg/dL (7-18); Calcium 8.2 mg/dL (8.5-10.1); Carbon Dioxide 34 mmol/L (21-32); Chloride 104 mmol/L (98-107); GFR African American 107 mL/min; GFR Non-African American 88 mL/min; Glucose 98 mg/dL (74-106); Potassium 3.8 mmol/L (3.5-5.1); Sodium 143 mmol/L (136-145)
[2019-04-15 06:09] LABS: INR 2.27 (0.9-1.15)
--- NOTE | 2019-04-15 06:35 | NUR ---
IV insertion IV access obtained, via clean sterile technique by inserting 24 gauge catheter at Right FA after 2 attempts. IV secured properly. No trauma to site. Patient tolerated well.
[2019-04-15] MEDS: FUROSEMIDE 40 MG/4 ML VIAL IV SCH ×2 (06:42→15:56)
[2019-04-15] MEDS: KETOROLAC TROMETH 30 MG/ML 1ML VIAL IV PRN ×3 (06:42→23:54)
[2019-04-15 08:00] VITALS: BP 104/60
[2019-04-15] MEDS: GABAPENTIN 300 MG CAP PO SCH ×2 (08:25→22:18)
[2019-04-15] MEDS: PANTOPRAZOLE 40 MG TAB PO SCH (08:25)
[2019-04-15] MEDS: PHENYTOIN SODIUM 100 MG CAP PO SCH ×2 (08:25→22:19)
[2019-04-15] MEDS: DULoxetine HCL 30 MG CAP PO SCH (08:25)
[2019-04-15] MEDS: SACUBITRIL-VALSARTAN 24mg/26mg TAB PO SCH ×2 (08:26→22:19)
[2019-04-15] MEDS: CARVEDILOL 3.125 MG TAB PO SCH ×2 (08:26→22:00)
[2019-04-15] MEDS: LEVETIRACETAM 500 MG TAB PO SCH ×2 (08:26→22:19)
[2019-04-15 08:32] VITALS: BP 104/60
--- NOTE | 2019-04-15 13:00 | NUR ---
PT OFF UNIT TO RADIOLOGY FOR VQ SCAN VIA BED. NO ACUTE DISTRESS NOTED AT DEPARTURE.
[2019-04-15 13:11] VITALS: BP 120/84
[2019-04-15 16:00] VITALS: BP 112/77
[2019-04-15] MEDS ORDERED: WARFARIN SODIUM 2 MG TAB PO ONE (17:00)
[2019-04-15 22:00] VITALS: BP 90/57
--- NOTE | 2019-04-16 01:10 | NUR ---
RT NOTE PT WAS SEEN BY RT FOR HHN TX. PT TOLERATES WELL VIA MASK. NO ADVERSE REACTION NOTED. CONT ORDERED Addendum: 04/16/19 at 0248 by Laila Alonzo RT Amended: Links added.
[2019-04-16] MEDS: ALBUTEROL SULF 2.5 MG/0.5ML(0.5%) NEB SOLN NEB SCH ×4 (01:25→18:39)
[2019-04-16] MEDS: IPRATROPIUM BROM 0.5 MG/2.5ML INH SOL NEB SCH ×4 (01:25→18:39)
[2019-04-16 05:00] VITALS: BP 93/78
[2019-04-16] MEDS: FUROSEMIDE 40 MG/4 ML VIAL IV SCH ×2 (06:00→17:36)
[2019-04-16 06:02] LABS: Basophils # (auto) 0 uL; Basophils % (auto) 0.6 % (0.0-2.0); Eosinophils # (auto) 0.4 uL; Eosinophils % (auto) 5.5 % (0.0-7.0); Hematocrit 36.9 % (36.0-46.0); Lymphocytes # (auto) 1.2 uL; Lymphocytes % (auto) 19.1 % (10.0-50.0); Mean Corpuscular Hemoglobin 31.6 pg (28.0-32.0); Mean Corpuscular Hgb Conc. 32.5 g/dL (32.0-36.0); Mean Corpuscular Volume 97.2 fL (80.0-100.0); Monocytes # (auto) 0.6 uL; Monocytes % (auto) 9.6 % (0.0-12.0); Neutrophils # (auto) 4.2 uL; Neutrophils % (auto) 65.2 % (37.0-80.0); Nucleated Red Blood Cells % 0.1 %; Platelet Count (auto) 139 10^3/uL (140-450); Red Cell Distribution Width 15.4 % (11.8-14.3); White Blood Cell 6.5 10^3/uL (4.4-10.8)
[2019-04-16 06:17] LABS: INR 1.59 (0.9-1.15); Partial Thromboplastin Time 32.3 sec (23.64-32.05)
--- NOTE | 2019-04-16 06:25 | NUR ---
ANTIQUE JEWELRY REPAIRER PATIENT TRANSPORTED TO ANTIQUE JEWELRY REPAIRER ON 2LNC, NO S/S OF DISTRESS NOTED. DAY SHIFT RN NOTIFIED OF PATIENT TRANSPORTATION OFF UNIT. Addendum: 04/16/19 at 0738 by Cathy Emery RN WRONG TIME CORRECT TIME 8806
[2019-04-16 06:31] LABS: Anion Gap 6 (5-15); BUN/Creatinine Ratio 28.6; Blood Urea Nitrogen 20 mg/dL (7-18); Carbon Dioxide 35 mmol/L (21-32); Chloride 104 mmol/L (98-107); GFR African American 115 mL/min; GFR Non-African American 95 mL/min; Glucose 93 mg/dL (74-106); Potassium 3.8 mmol/L (3.5-5.1); Sodium 145 mmol/L (136-145)
--- NOTE | 2019-04-16 07:30 | NUR ---
RECEIVED REPORT FROM NIGHT NURSE. PATIENT NOT IN ROOM, PATIENT AT PROCEDURE IN PATIENT REGISTRATION SUPERVISOR.
[2019-04-16] MEDS ORDERED: LIDOCAINE 2%HCL (LOCAL ANESTH.) INJ 20ML MDV ONE (08:02)
[2019-04-16] MEDS ORDERED: IOHEXOL 350 MG/ML 100ML IJ ONE ×2 (08:02→08:07)
[2019-04-16] MEDS ORDERED: fentaNYL CITRATE 100 MCG/2 ML VL ONE (08:06)
[2019-04-16] MEDS ORDERED: ANGIOMAX 250 MG VIAL IV ONE (08:06)
[2019-04-16] MEDS ORDERED: MIDAZOLAM HCL 1MG/1ML-2 ML VIAL ONE (08:06)
[2019-04-16] MEDS ORDERED: VERAPAMIL 2.5MG/ML INJ 2ML VIAL IV ONE (08:06)
[2019-04-16] MEDS ORDERED: HEPARIN SODIUM (PORCINE) 5000 UNITS/ML 1ML VIAL ONE (08:06)
[2019-04-16] MEDS ORDERED: SODIUM CHL 0.9% 0 ML ONE (08:07)
[2019-04-16 08:29] VITALS: BP 103/69
--- NOTE | 2019-04-16 10:23 | NUR ---
PATIENT BACK FROM ORDER SCHEDULE CLERK. VITALS STABLE, VASC BAND TO THE RIGHT WRIST, NO BLEEDING NOTED. WILL CONTINUE TO MONITOR.
--- NOTE | 2019-04-16 10:30 | NUR ---
VASC BAND 2ML REMOVED FROM RIGHT WRIST VASC BAND. NO BLEEDING NOTED.
[2019-04-16 10:35] VITALS: BP 113/74
[2019-04-16] MEDS: DULoxetine HCL 30 MG CAP PO SCH (10:44)
--- NOTE | 2019-04-16 10:45 | NUR ---
VASC BAND 2ML OF AIR REMOVED FROM RIGHT WRIST. NO BLEEDING NOTED.
[2019-04-16] MEDS: PHENYTOIN SODIUM 100 MG CAP PO SCH ×2 (10:47→22:06)
[2019-04-16] MEDS: CARVEDILOL 3.125 MG TAB PO SCH ×2 (10:47→22:00)
[2019-04-16] MEDS: SACUBITRIL-VALSARTAN 24mg/26mg TAB PO SCH ×2 (10:48→22:05)
[2019-04-16] MEDS: GABAPENTIN 300 MG CAP PO SCH ×2 (10:49→22:07)
[2019-04-16] MEDS: LEVETIRACETAM 500 MG TAB PO SCH ×2 (10:50→22:05)
[2019-04-16] MEDS: PANTOPRAZOLE 40 MG TAB PO SCH (10:50)
--- NOTE | 2019-04-16 11:00 | NUR ---
VASC BAND 2ML OF AIR REMOVED FROM THE RIGHT WRIST. NO BLEEDING NOTED.
[2019-04-16] MEDS: KETOROLAC TROMETH 30 MG/ML 1ML VIAL IV PRN ×2 (11:02→19:58)
--- NOTE | 2019-04-16 11:15 | NUR ---
VASC BAND 2ML OF AIR REMOVED FROM RIGHT WRIST. NO BLEEDING NOTED. BAND REMOVED FROM WRIST BAND AID PLACED OVER INCISION SITE. WILL CONTINUE TO MONITOR.
[2019-04-16 12:32] VITALS: BP 104/75
[2019-04-16 16:41] VITALS: BP 94/63
[2019-04-16] MEDS: WARFARIN SODIUM 2.5 MG TAB PO ONE ×2 (17:05→17:32)
--- NOTE | 2019-04-16 17:18 | NUR ---
SPOKE WITH DOCTOR BARRY, ORDERS RECEIVED, WILL PLACE AND CARRY OUT.
--- NOTE | 2019-04-16 17:37 | NUR ---
SPOKE TO DOCTOR ASHA, DECREASED BP, ORDERS TO HOLD LASIX 1800 DOSE.
[2019-04-16] MEDS: HYDROcodone-ACET 5/325MG TAB PO PRN (17:39)
--- NOTE | 2019-04-16 19:35 | NUR ---
Opening Shift Note Assumed care of patient, awake and alert oriented x4. No S/S of distress/SOB noted. Bed is in lowest locked position with bed rails up x2 and call light is within reach of the patient. Family at the bedside. Instructed on POC and to call for assist PRN. Instructed to keep life vest on. Patient verbalized understanding.
[2019-04-16 22:00] VITALS: BP 101/52
[2019-04-16] MEDS: ENOXAPARIN SOD 150 MG/1 ML SYRINGE SC SCH (22:07)
[2019-04-17] MEDS: HYDROcodone-ACET 5/325MG TAB PO PRN (01:33)
[2019-04-17] MEDS: KETOROLAC TROMETH 30 MG/ML 1ML VIAL IV PRN ×3 (03:58→20:34)
[2019-04-17 05:00] VITALS: BP 105/71
[2019-04-17] MEDS: FUROSEMIDE 40 MG/4 ML VIAL IV SCH ×2 (05:34→17:18)
[2019-04-17] MEDS: ALBUTEROL SULF 2.5 MG/0.5ML(0.5%) NEB SOLN NEB SCH ×3 (06:22→18:28)
[2019-04-17] MEDS: IPRATROPIUM BROM 0.5 MG/2.5ML INH SOL NEB SCH ×3 (06:22→18:28)
--- NOTE | 2019-04-17 07:40 | NUR ---
RECEIVED REPORT FROM NIGHT NURSE. PATIENT RESTING IN BED, NO DISTRESS NOTED. WILL CONTINUE TO MONITOR.
[2019-04-17 08:12] LABS: Basophils # (auto) 0 uL; Basophils % (auto) 0.3 % (0.0-2.0); Eosinophils # (auto) 0.4 uL; Eosinophils % (auto) 6.2 % (0.0-7.0); Hemoglobin 12.3 g/dL (12.2-16.2); Lymphocytes # (auto) 1.4 uL; Lymphocytes % (auto) 22.8 % (10.0-50.0); Mean Corpuscular Hemoglobin 31.8 pg (28.0-32.0); Mean Corpuscular Hgb Conc. 32.4 g/dL (32.0-36.0); Mean Corpuscular Volume 98.1 fL (80.0-100.0); Monocytes # (auto) 0.5 uL; Monocytes % (auto) 8.8 % (0.0-12.0); Neutrophils # (auto) 3.8 uL; Neutrophils % (auto) 61.9 % (37.0-80.0); Nucleated Red Blood Cells % 0.2 %; Platelet Count (auto) 127 10^3/uL (140-450); Red Blood Cells 3.87 10^6/uL (4.0-5.20); Red Cell Distribution Width 15.2 % (11.8-14.3); White Blood Cell 6.1 10^3/uL (4.4-10.8)
[2019-04-17 08:30] LABS: INR 1.3 (0.9-1.15)
[2019-04-17 09:00] VITALS: BP 115/61
[2019-04-17 09:39] VITALS: BP 101/52
[2019-04-17] MEDS: ENOXAPARIN SOD 150 MG/1 ML SYRINGE SC SCH (10:49)
[2019-04-17] MEDS: SACUBITRIL-VALSARTAN 24mg/26mg TAB PO SCH ×2 (10:49→21:56)
[2019-04-17] MEDS: CARVEDILOL 3.125 MG TAB PO SCH ×2 (10:50→22:00)
[2019-04-17] MEDS: DULoxetine HCL 30 MG CAP PO SCH (10:50)
[2019-04-17] MEDS: PHENYTOIN SODIUM 100 MG CAP PO SCH ×2 (10:50→21:56)
[2019-04-17] MEDS: GABAPENTIN 300 MG CAP PO SCH ×2 (10:50→21:56)
[2019-04-17] MEDS: LEVETIRACETAM 500 MG TAB PO SCH ×2 (10:51→21:56)
[2019-04-17] MEDS: PANTOPRAZOLE 40 MG TAB PO SCH (10:51)
--- NOTE | 2019-04-17 12:41 | NUR ---
NUTRITION ASSESSMENT NOTES Please refer to link notes of nutrition screen form filed under the intervention section of the plan of care for further details. Est. Needs based on AdBW (78 kg): 1550 kcal to 1950 kcal (20-25 kcal/kgAdBW), 78 gms to 94 gms pro (1.0-1.2 gms/kgAdBW). Will continue to monitor pertinent labs and reassess nutrient need prn Thank you. Addendum: 04/17/19 at [address] Amended: Links added.
[2019-04-17 12:52] VITALS: BP 100/49
[2019-04-17] MEDS ORDERED: WARFARIN SODIUM 10 MG TAB PO ONE (17:00)
[2019-04-17 17:29] VITALS: BP 101/57
--- NOTE | 2019-04-17 19:45 | NUR ---
Opening Shift Note Assumed care of patient, resting in bed with breaths even and unlabored. No S/S of distress/SOB or pain noted and family member is at the bedside. Bed is in lowest locked position with bed rails up x2 and call light is within reach of the patient. Instructed on plan of care and to call if needed.
--- NOTE | 2019-04-17 20:10 | NUR ---
Hematuria and bleeding to right wrist: Patient had complaints of pain on right wrist. Went to assess the patients dressing from left heart cath on the right wrist, bandaid was saturated with minimal blood. Changed dressing and placed gauze at the site and and secured with coband. Site was not actively bleeding, educated patient to minimize weight baring to the site and to notify immediately if she feels numbness, tingling or increased pain at the site. Patient verbalized understanding. Noticed patients Fitzgerald bag to have hematuria with blood inside tubing and bag. Drained 1275mls of pink-red urine from Fitzgerald bag. Patient is resting in bed with breaths even and unlabored and is not in acute distress. To page and notify the hospitalist.
--- NOTE | 2019-04-17 21:42 | NUR ---
Spoke to Hospitalist: Spoke with Hospitalist Kylee regarding patients bleeding to the right wrist site and blood found in patients Fitzgerald bag. Site to right wrist is no longer bleeding. Updated hospitalist about patients blood bank laboratory professional procedure, situation and medications. Hospitalist ordered for Lovenox to be discontinued and stated that the hematuria should resolve. To place orders and will continue to monitor.
[2019-04-17 22:00] VITALS: BP 99/68
--- NOTE | 2019-04-17 23:55 | NUR ---
Paged Hospitalist: Paged hospitalist at this time to get order for updated labs to evaluate patients hemoglobin in the AM.
--- NOTE | 2019-04-17 23:57 | NUR ---
Hospitalist called back: Hospitalist Kylee called back. Made hospitalist aware that patient does not have schedule for labs to be updated to evaluate patients hemoglobin. Kylee ordered for CBC and PT and INR to be evaluated in the AM. Made hospitalist aware that patient has PT and INR order for AM. Ordered for just a CBC for the AM. To place orders.
--- NOTE | 2019-04-18 00:22 | NUR ---
Respiratory note: PT REFUSED SCHEDULED MED NEB TX AT THIS TIME. PT PRESENTINGNO Addendum: 04/18/19 at 0030 by ARABELLA BUTLER, RT PRESENTING NO RESPIRATORY DISTRESS AT THIS TIME. WILL CONTINUE TO MONITOR,.
[2019-04-18] MEDS: KETOROLAC TROMETH 30 MG/ML 1ML VIAL IV PRN ×3 (04:41→21:32)
[2019-04-18 05:00] VITALS: BP 99/69
[2019-04-18] MEDS: FUROSEMIDE 40 MG/4 ML VIAL IV SCH ×2 (05:33→18:08)
--- NOTE | 2019-04-18 06:39 | NUR ---
Contacted zoology technical officer: Spoke with zoology technical officer cary in regards to patients labs that need to be drawn, CBC and Pt INR. Stated that they should be being processed.
--- NOTE | 2019-04-18 06:49 | NUR ---
Closing note: Patient is resting in bed with breaths even and unlabored. No s/s of distress SOB noted. Bed is in lowest locked position with bed rails up x2 and call light is within reach of the patient. Urine in Fitzgerald bag is clearing up from blood to an serena color and coband and gauze on right wrist only has a light spot of dried blood noted. Will endorse care to day shift nurse.
[2019-04-18 06:51] LABS: Basophils # (auto) 0 uL; Basophils % (auto) 0.6 % (0.0-2.0); Eosinophils # (auto) 0.4 uL; Eosinophils % (auto) 6.2 % (0.0-7.0); Hematocrit 38.3 % (36.0-46.0); Hemoglobin 12.3 g/dL (12.2-16.2); Lymphocytes # (auto) 1.2 uL; Lymphocytes % (auto) 20.6 % (10.0-50.0); Mean Corpuscular Hemoglobin 31.6 pg (28.0-32.0); Mean Corpuscular Hgb Conc. 32.1 g/dL (32.0-36.0); Mean Corpuscular Volume 98.5 fL (80.0-100.0); Monocytes # (auto) 0.5 uL; Monocytes % (auto) 7.6 % (0.0-12.0); Neutrophils # (auto) 3.9 uL; Nucleated Red Blood Cells % 0.1 %; Platelet Count (auto) 120 10^3/uL (140-450); Red Blood Cells 3.89 10^6/uL (4.0-5.20); Red Cell Distribution Width 15.2 % (11.8-14.3)
[2019-04-18 07:04] LABS: INR 1.6 (0.9-1.15)
[2019-04-18] MEDS: ALBUTEROL SULF 2.5 MG/0.5ML(0.5%) NEB SOLN NEB SCH ×5 (07:49→22:50)
[2019-04-18] MEDS: IPRATROPIUM BROM 0.5 MG/2.5ML INH SOL NEB SCH ×5 (07:49→22:50)
--- NOTE | 2019-04-18 07:55 | NUR ---
Opening Shift Note Assumed care of patient, awake and alert. No S/S of pain. Instructed on POC and to call for assist PRN, will continue to monitor for changes Q1hr and PRN.
[2019-04-18 08:27] VITALS: BP 122/75
[2019-04-18] MEDS: PHENYTOIN SODIUM 100 MG CAP PO SCH ×2 (09:52→21:32)
[2019-04-18] MEDS: GABAPENTIN 300 MG CAP PO SCH ×2 (09:52→21:33)
[2019-04-18] MEDS: SACUBITRIL-VALSARTAN 24mg/26mg TAB PO SCH ×2 (09:52→21:33)
[2019-04-18] MEDS: CARVEDILOL 3.125 MG TAB PO SCH ×2 (09:53→21:33)
[2019-04-18] MEDS: DULoxetine HCL 30 MG CAP PO SCH (09:53)
[2019-04-18] MEDS: LEVETIRACETAM 500 MG TAB PO SCH ×2 (09:53→21:33)
[2019-04-18] MEDS: PANTOPRAZOLE 40 MG TAB PO SCH (09:53)
--- NOTE | 2019-04-18 12:15 | NUR ---
Hospitalist Rounding Dr. Escobar at bedside. Patient sleeping, family member in attendance.
[2019-04-18 13:00] VITALS: BP 102/73
[2019-04-18] MEDS ORDERED: WARFARIN SODIUM 2.5 MG TAB PO ONE (17:00)
[2019-04-18 17:12] VITALS: BP 108/68
--- NOTE | 2019-04-18 19:25 | NUR ---
Opening Shift Note Assumed care of patient, awake and alert x4. Family is at bedside. No S/S of distress/SOB or pain. Fitzgerald is in place and hung below bladder. Instructed on POC and to call for assist PRN. All questions and concerns answered, will continue to monitor for changes Q1hr and PRN.
[2019-04-18 23:00] VITALS: BP 90/53
[2019-04-19 05:43] VITALS: BP 100/61
[2019-04-19] MEDS: KETOROLAC TROMETH 30 MG/ML 1ML VIAL IV PRN (05:46)
[2019-04-19] MEDS: FUROSEMIDE 40 MG/4 ML VIAL IV SCH ×2 (06:00→17:47)
[2019-04-19 06:14] LABS: INR 1.86 (0.9-1.15)
[2019-04-19] MEDS: IPRATROPIUM BROM 0.5 MG/2.5ML INH SOL NEB SCH ×4 (06:40→23:46)
[2019-04-19] MEDS: ALBUTEROL SULF 2.5 MG/0.5ML(0.5%) NEB SOLN NEB SCH ×4 (06:40→23:46)
--- NOTE | 2019-04-19 07:28 | NUR ---
Opening Shift Note Assumed care of patient, awake and alert. No S/S of distress/SOB. Pt denies having any pain at this time. Zoll life vest on pt appropriately. Bed in lowest and locked position with side rails up x2 and call light within reach. Instructed on POC and to call for assist PRN, will continue to monitor for changes Q1hr and PRN.
[2019-04-19 09:00] VITALS: BP 100/57
[2019-04-19] MEDS: CARVEDILOL 3.125 MG TAB PO SCH ×2 (10:00→21:41)
[2019-04-19] MEDS: SACUBITRIL-VALSARTAN 24mg/26mg TAB PO SCH ×2 (10:00→21:42)
[2019-04-19] MEDS: GABAPENTIN 300 MG CAP PO SCH ×2 (10:30→21:42)
[2019-04-19] MEDS: LEVETIRACETAM 500 MG TAB PO SCH ×2 (10:30→21:42)
[2019-04-19] MEDS: PHENYTOIN SODIUM 100 MG CAP PO SCH ×2 (10:30→21:41)
[2019-04-19] MEDS: DULoxetine HCL 30 MG CAP PO SCH (10:30)
[2019-04-19] MEDS: PANTOPRAZOLE 40 MG TAB PO SCH (10:30)
--- NOTE | 2019-04-19 10:35 | NUR ---
PT DECLINED P.T. TODAY.
--- NOTE | 2019-04-19 11:25 | NUR ---
EEG COMPLETED AT BEDSIDE. GIUSEPPE JAMISON.
[2019-04-19 13:00] VITALS: BP 103/61
[2019-04-19 17:00] VITALS: BP 106/70
[2019-04-19] MEDS ORDERED: WARFARIN SODIUM 2.5 MG TAB PO ONE (17:00)
--- NOTE | 2019-04-19 17:30 | NUR ---
PATIENT AMBULATED TO RESTROOM. FAMILY AT BEDSIDE. NO S/S OF DISTRESS OR SOB. PATIENT TOLERATED WELL.
--- NOTE | 2019-04-19 18:50 | NUR ---
CALLED RT AND REQUESTED THE RESULTS OF THE SPIROMETRY TEST. RT TO CALL BACK WITH INFORMATION.
--- NOTE | 2019-04-19 18:55 | NUR ---
SPOKE TO DR. PRASAD. NOTIFIED THAT THE RN IS AWAITING THE RESULTS FROM RT. DR. PRASAD REQUESTED THAT IF THE TEST HAS NOT ALREADY BEEN DONE, THEN FOR RT TO DO THE SPIROMETRY TEST AND THE RN TO CALL THE MD WITH RESULTS IN THE AM.
--- NOTE | 2019-04-19 18:59 | NUR ---
RECEIVED CALL BACK FROM RT. ACCORDING TO RT, IF THE SPIROMETRY TEST WAS DONE THEN THE RESULTS WOULD BE IN THE HARD CHART. RT NOTIFIED THAT THE RESULTS HAVE NOT BEEN FOUND IN THE HARD CHART. RT STATED THAT THE TEST WILL BE DONE WITH THE NEXT BREATHING TREATMENT.
--- NOTE | 2019-04-19 19:30 | NUR ---
ENDORSED CARE TO NIGHT MARK CHIN.
--- NOTE | 2019-04-19 19:55 | NUR ---
ASSUMED CARE, PT. AWAKE, NO C/O PAIN, NO SOB.
[2019-04-19 21:48] VITALS: BP 107/66
[2019-04-19 23:01] VITALS: BP 146/71
--- NOTE | 2019-04-19 23:40 | NUR ---
PT WOKEN UP FOR MED NEB TX AND ORDERED PFT. PT REFUSED TX AND TEST AT THIS TIME, PT FALLING ASLEEP AND UNABLE STAY AWAKE. RN ALYSSIA LAWRENCE MADE AWARE.
[2019-04-20] MEDS: FUROSEMIDE 40 MG/4 ML VIAL IV SCH ×2 (05:33→17:48)
[2019-04-20 05:37] VITALS: BP 109/70
[2019-04-20 05:50] LABS: Basophils # (auto) 0.1 uL; Basophils % (auto) 0.8 % (0.0-2.0); Eosinophils # (auto) 0.4 uL; Eosinophils % (auto) 5.4 % (0.0-7.0); Hematocrit 37.4 % (36.0-46.0); Hemoglobin 12.3 g/dL (12.2-16.2); Lymphocytes # (auto) 1.3 uL; Lymphocytes % (auto) 19.4 % (10.0-50.0); Mean Corpuscular Hemoglobin 31.7 pg (28.0-32.0); Mean Corpuscular Hgb Conc. 32.8 g/dL (32.0-36.0); Mean Corpuscular Volume 96.7 fL (80.0-100.0); Monocytes # (auto) 0.6 uL; Monocytes % (auto) 8.8 % (0.0-12.0); Neutrophils # (auto) 4.4 uL; Neutrophils % (auto) 65.6 % (37.0-80.0); Platelet Count (auto) 125 10^3/uL (140-450); Red Blood Cells 3.87 10^6/uL (4.0-5.20); White Blood Cell 6.7 10^3/uL (4.4-10.8)
[2019-04-20 06:16] LABS: INR 1.96 (0.9-1.15)
[2019-04-20 06:17] LABS: BUN/Creatinine Ratio 23.6; Calcium 8.3 mg/dL (8.5-10.1); Potassium 3.8 mmol/L (3.5-5.1)
[2019-04-20] MEDS: IPRATROPIUM BROM 0.5 MG/2.5ML INH SOL NEB SCH ×4 (07:04→19:34)
[2019-04-20] MEDS: ALBUTEROL SULF 2.5 MG/0.5ML(0.5%) NEB SOLN NEB SCH ×4 (07:04→19:34)
--- NOTE | 2019-04-20 07:32 | NUR ---
CALLED RT REGARDING PFT THAT HAS BEEN ORDERED, THE TEST HAS NOT BEEN DONE DUE TO THE PT REFUSING ON BUSHING PRESS OPERATOR. THE RT TO NOTIFY LEAD RT FOR ATTEMPT WITH NEXT TREATMENT.
--- NOTE | 2019-04-20 08:41 | NUR ---
PAGED DR. PRASAD REGARDING PFT RESULTS. AWAITING CALL BACK.
[2019-04-20 09:00] VITALS: BP 99/69
[2019-04-20] MEDS: CARVEDILOL 3.125 MG TAB PO SCH ×2 (10:00→22:00)
[2019-04-20] MEDS: PHENYTOIN SODIUM 100 MG CAP PO SCH ×2 (10:03→21:42)
[2019-04-20] MEDS: DULoxetine HCL 30 MG CAP PO SCH (10:03)
[2019-04-20] MEDS: LEVETIRACETAM 500 MG TAB PO SCH ×2 (10:04→21:43)
[2019-04-20] MEDS: PANTOPRAZOLE 40 MG TAB PO SCH (10:04)
[2019-04-20] MEDS: SACUBITRIL-VALSARTAN 24mg/26mg TAB PO SCH ×2 (10:04→21:43)
[2019-04-20] MEDS: GABAPENTIN 300 MG CAP PO SCH ×2 (10:04→21:42)
--- NOTE | 2019-04-20 12:21 | NUR ---
Nutrition Follow-up Notes Wt.: 73.0 kg Pt was sleeping with no family by beside. per pt records pt with multiple strokes. pt with no distress noted. pt is currently on 2 gm na diet with adequate PO of 100% x 6 per RN doc Est. Needs based on AdBW (78 kg): 1550 kcal to 1950 kcal (20-25 kcal/kgAdBW), 78 gms to 94 gms pro (1.0-1.2 gms/kgAdBW). Will continue to monitor pertinent labs and reassess nutrient need prn Labs: CA 8.3 L, rest lab wnl Skin: Igor scale 15, mod risk redness on abdomen per RN doc GI: Pt had 1 BM today per innersole maker. PES: Altered nutrition related lab values r/t current/chronic medical condition aeb hypercapnia, elev. BUN, hypocalcemia and mod hypoalbuminemia Obesity r/t excesses PO intake aeb 251% IBW, BMI 52.4 kg/m2 and increased body adiposity Will continue to monitor PO intake, skin status, pertinent labs and weight trend. F/u in 3 to 5 days. Rec.: 1.) Consider Cardiac: 2 gms Na, Low Chol, Low Fat diet with 1500 Fluid restriction 2.) Continue close supervision with meals 3.) Consider stool softener/laxatives for regular bowel elimination prn. 4.) Refer to RD for further nutrition educ. and weight monitoring upon discharge. 5.) Continue current plan of care.
--- NOTE | 2019-04-20 13:22 | NUR ---
SPOKE TO DR. PRASAD. NOTIFIED THAT THE PATENTS PFT RESULTS ARE IN THE CHART. AWARE. ACCORDING TO DR. PRASAD THE PATIENT IS CLEARED FROM PULMONOLOGY FOR DC.
[2019-04-20 14:00] VITALS: BP 97/79
--- NOTE | 2019-04-20 14:35 | NUR ---
EDUCATED THE PATIENT ON THE RISKS AND BENEFITS OF PT. THE PATIENT VERBALIZED UNDERSTANDING AND AGREES TO GET OUT OF BED WITH PT. PAGED PT.
--- NOTE | 2019-04-20 14:36 | NUR ---
PER MD ECHEVARRIA ORDERS, BEGIN BLADDER TRAINING TO REMOVE HANNA CATHETER. HANNA CATHETER CLAMPED AT THIS TIME.
--- NOTE | 2019-04-20 14:40 | NUR ---
PT AT BEDSIDE. PATIENT AMBULATING VIA WALKER WITH PT ASSISTING PATIENT.
--- NOTE | 2019-04-20 15:20 | NUR ---
UNCLAMPED CATHETER, DRAINED 200ML AND RECLAMPED CATHETER.
--- NOTE | 2019-04-20 16:34 | NUR ---
UNCLAMPED CATHETER, DRAINED 125ML AND RECLAMPED CATHETER.
[2019-04-20 16:45] VITALS: BP 101/55
--- NOTE | 2019-04-20 16:55 | NUR ---
SPOKE TO DR. EUCEDA. ACCORDING TO MD, THE PATIENT IS CLEARED FROM A NEUROLOGY PERSPECTIVE FOR DISCHARGE.
[2019-04-20] MEDS ORDERED: WARFARIN SODIUM 5 MG TAB PO ONE (17:00)
--- NOTE | 2019-04-20 18:00 | NUR ---
PATIENT UNCLAMPED CATHETER. PATIENT EDUCATED ON THE REASONING FO CLAMPING THE CATHETER AND EDUCATED TO NOTIFY THE RN IF SHE HAS THE URGE TO URINATE. PATIENT VERBALIZED UNDERSTANDING. CATHETER CLAMPED.
--- NOTE | 2019-04-20 19:10 | NUR ---
UNCLAMPED CATHETER, DRAINED URINE AND RECLAMPED CATHETER.
--- NOTE | 2019-04-20 19:28 | NUR ---
ENDORSED CARE TO NIGHT RNDEE. RN AWARE OF CATHETER CLAMPING AND ORDER TO DC CATHETER AFTER BLADDER TRAINING.
--- NOTE | 2019-04-20 19:30 | NUR ---
Opening shift note Assumed care of patient who is A&O x4. Currently on 2Lpm vis NC with no s/s of distress or SOB. Patient complains of 10/10 cramping pain in right foot. Instructed to stretch foot in an upward direction. Assisted patient in this motion and elevated BLE on a pillow. All electrolyte values, Ca and Mg are WNL. Cardiac rhythm is currently A-fib @ 90bpm. No T-wave abnormalities noted. Pain medication administered per orders at patients request. Will continue to monitor for changes.
--- NOTE | 2019-04-20 19:33 | NUR ---
Respiratory note: PT WANTS TO REFUSE MIDNIGHT TX AT THIS TIME. PT NOTIFIED TO CALL RT IF SOB OCCURS
[2019-04-20] MEDS: HYDROcodone-ACET 5/325MG TAB PO PRN (20:32)
--- NOTE | 2019-04-20 21:45 | NUR ---
Naik catheter unclamped, urine drained and naik reclamped. Will reassess ability to hold urine and remove naik per MD orders.
[2019-04-20 22:00] VITALS: BP 98/67
[2019-04-21] VITALS (12 sets, daily range): BP systolic 71–114; BP diastolic 40–69
--- NOTE | 2019-04-21 00:49 | NUR ---
Naik catheter unclamped and 250ml light yellow urine drained. Balloon deflated and naik removed. Catheter tip is intact. Patient tolerated well. Bedside commode provided and patient instructed to call for assistance when she feels the need to void. Verbalizes understanding.
--- NOTE | 2019-04-21 01:41 | NUR ---
void Patient transferred to BS to void.
[2019-04-21] MEDS: FUROSEMIDE 40 MG/4 ML VIAL IV SCH ×2 (06:00→17:32)
[2019-04-21] MEDS: ALBUTEROL SULF 2.5 MG/0.5ML(0.5%) NEB SOLN NEB SCH ×3 (06:56→18:09)
[2019-04-21] MEDS: IPRATROPIUM BROM 0.5 MG/2.5ML INH SOL NEB SCH ×3 (06:56→18:09)
[2019-04-21 07:17] LABS: Basophils # (auto) 0.1 uL; Basophils % (auto) 0.8 % (0.0-2.0); Eosinophils # (auto) 0.4 uL; Eosinophils % (auto) 5.2 % (0.0-7.0); Hematocrit 40.1 % (36.0-46.0); Hemoglobin 13.1 g/dL (12.2-16.2); Lymphocytes # (auto) 1.2 uL; Lymphocytes % (auto) 17.9 % (10.0-50.0); Mean Corpuscular Hemoglobin 31.5 pg (28.0-32.0); Mean Corpuscular Hgb Conc. 32.6 g/dL (32.0-36.0); Mean Corpuscular Volume 96.7 fL (80.0-100.0); Monocytes # (auto) 0.6 uL; Monocytes % (auto) 8.6 % (0.0-12.0); Neutrophils # (auto) 4.6 uL; Neutrophils % (auto) 67.5 % (37.0-80.0); Platelet Count (auto) 137 10^3/uL (140-450); Red Blood Cells 4.15 10^6/uL (4.0-5.20); White Blood Cell 6.9 10^3/uL (4.4-10.8)
[2019-04-21 07:31] LABS: INR 2.31 (0.9-1.15)
--- NOTE | 2019-04-21 08:33 | NUR ---
SPOKE TO DR. EUCEDA. NEW ORDERS RECEIVED, READ BACK AND VERIFIED.
[2019-04-21] MEDS ORDERED: LORazepam 2MG/ML-1ML VIAL IV PRN (08:45)
--- NOTE | 2019-04-21 09:16 | NUR ---
PAGED DR. ECHEVARRIA REGARDING REDNESS AND ITCHINESS. AWAITING CALL BACK.
[2019-04-21 09:51] LABS: BUN/Creatinine Ratio 22.6; Calcium 8.4 mg/dL (8.5-10.1); Potassium 3.5 mmol/L (3.5-5.1)
[2019-04-21] MEDS: CARVEDILOL 3.125 MG TAB PO SCH (10:00)
[2019-04-21] MEDS: diphenhdrAMINE HCL 25 MG CAP PO PRN ×2 (10:23→21:52)
[2019-04-21] MEDS: PHENYTOIN SODIUM 100 MG CAP PO SCH ×2 (10:24→21:47)
[2019-04-21] MEDS: PANTOPRAZOLE 40 MG TAB PO SCH (10:24)
[2019-04-21] MEDS: LEVETIRACETAM 500 MG TAB PO SCH ×2 (10:24→21:46)
[2019-04-21] MEDS: SACUBITRIL-VALSARTAN 24mg/26mg TAB PO SCH ×2 (10:24→22:00)
[2019-04-21] MEDS: GABAPENTIN 300 MG CAP PO SCH ×2 (10:24→21:46)
[2019-04-21] MEDS: DULoxetine HCL 30 MG CAP PO SCH (10:24)
--- NOTE | 2019-04-21 16:30 | NUR ---
PRIOR TO DISCHARGE THE PATIENTS BLOOD PRESSURE 71/46 AND RECHECK WAS 77/44 AT REST. HEART RATE REMAINS 85-89 BPM. PATIENT WAS WOKEN UP AND THE BP WAS RECHECKED X2 AT 90/58 AND 82/58. PATIENT VERBALIZED FEELING "DIZZY" AND "TIRED" PATIENT DENIES SOB OR DISTRESS MD TO BE NOTIFIED.
--- NOTE | 2019-04-21 16:35 | NUR ---
PAGED DR. ECHEVARRIA. AWAITING CALL BACK.
--- NOTE | 2019-04-21 16:40 | NUR ---
RECEIVED CALL BACK FROM DR. ECHEVARRIA. NOTIFIED OF THE PATIENTS HYPOTENSION. MD AWARE OF PATIENTS BLOOD PRESSURE 71/46 AND 77/44 AND RECHECKED TO 82/58 AND 90/58. NEW ORDERS RECEIVED TO CANCEL DISCHARGE AND CONSULT CARDIOLOGY FOR A RE-EVALUATION.
--- NOTE | 2019-04-21 16:47 | NUR ---
PAGED CHIKI KELSEY REGARDING CARDIOLOGY RE-EVALUATION AND HYPOTENSION. AWAITING CALL BACK.
--- NOTE | 2019-04-21 16:55 | NUR ---
RECEIVED CALL FROM CHIKI KELSEY. ACCORDING TO FLAVORING MACHINE OPERATOR, SHE WILL SEE THE PATIENT TONIGHT. NO NEW ORDERS RECEIVED.
[2019-04-21] MEDS ORDERED: WARFARIN SODIUM 2.5 MG TAB PO ONE (17:00)
--- NOTE | 2019-04-21 18:45 | NUR ---
EDGE PLUGGER KELSEY AT PATIENT BEDSIDE. PER EDGE PLUGGER CONTINUE TO MONITOR PT AND POSSIBLE DC TOMORROW. NO NEW ORDERS RECEIVED.
--- NOTE | 2019-04-21 19:20 | NUR ---
Opening Shift Note Report received from day shift RN. Assumed care of patient. Patient awake sitting in bed and A&O x4. No S/S of distress/SOB noted and patient denies pain at this time. Zoll life vest in place on patient. Bed locked in lowest position with side rails up x2 and call light within reach. Instructed on POC and to call for assist PRN, will continue to monitor for changes Q1hr and PRN.
--- NOTE | 2019-04-21 19:35 | NUR ---
ENDORSED CARE TO NIGHT RNNICHOLE.
[2019-04-22] MEDS: ALBUTEROL SULF 2.5 MG/0.5ML(0.5%) NEB SOLN NEB SCH ×3 (00:25→12:37)
[2019-04-22] MEDS: IPRATROPIUM BROM 0.5 MG/2.5ML INH SOL NEB SCH ×3 (00:25→12:37)
--- NOTE | 2019-04-22 01:00 | NUR ---
Assumed care of patient: Assumed care of patient, awake and alert. No S/S of distress/SOB or pain. Instructed on POC and to call for assist PRN, will continue to monitor for changes Q1hr and PRN.
[2019-04-22 05:20] VITALS: BP 105/68
[2019-04-22] MEDS: FUROSEMIDE 40 MG/4 ML VIAL IV SCH ×2 (05:38→18:00)
[2019-04-22 06:34] LABS: Partial Thromboplastin Time 36.1 sec (23.64-32.05)
--- NOTE | 2019-04-22 07:15 | NUR ---
Opening Shift Note Assumed care of patient, awake and alert. No S/S of distress/SOB. Instructed on POC and to call for assist PRN, will continue to monitor for changes Q1hr and PRN.
[2019-04-22 09:00] VITALS: BP 110/70
[2019-04-22] MEDS: DULoxetine HCL 30 MG CAP PO SCH (09:49)
[2019-04-22] MEDS: SACUBITRIL-VALSARTAN 24mg/26mg TAB PO SCH (09:49)
[2019-04-22] MEDS: diphenhdrAMINE HCL 25 MG CAP PO PRN (09:50)
[2019-04-22] MEDS: PHENYTOIN SODIUM 100 MG CAP PO SCH (09:50)
[2019-04-22] MEDS: PANTOPRAZOLE 40 MG TAB PO SCH (09:50)
[2019-04-22] MEDS: LEVETIRACETAM 500 MG TAB PO SCH (09:50)
[2019-04-22] MEDS: GABAPENTIN 300 MG CAP PO SCH (09:50)
--- NOTE | 2019-04-22 11:35 | NUR ---
FAMILY AT BEDSIDE VISITING
[2019-04-22 13:00] VITALS: BP 99/78
--- NOTE | 2019-04-22 15:55 | NUR ---
MD VISIT DR. BAILEY HERE TO SEE AND EXAMINED PATIENT,EXPLAIN TO PATIENT AND FAMILY DISEASE PROCESS AND DISCHARGE PLAN FOR TODAY,PATIENT VERBALIZED UNDERSTANDING.
--- NOTE | 2019-04-22 16:30 | NUR ---
CALLED DR. BAILEY INFORMED UNABLE TO RESUME DR. ECHEVARRIA DISCHARGE ORDER DUE TO CANCELLATION OF DISCHARGE ORDER FROM YESTERDAY ,RECEIVED ORDER TO RESUME AND COPY DR. ECHEVARRIA ORDER UNDER HIS NAME.
[2019-04-22 17:00] VITALS: BP 98/54
[2019-04-22] MEDS ORDERED: WARFARIN SODIUM 5 MG TAB PO ONE (18:00)
[2019-04-22 18:10] VITALS: BP 98/54
--- NOTE | 2019-04-22 18:43 | NUR ---
Discharge instructions given as ordered. Encourage to follow up with PMD as instructed. All questions and concerns addressed. Patient verbalized understanding. Medication reconciliation form completed and copy given to patient. IV removed with catheter intact, pressure dressing applied, Telemetry unit returned to ICU. Patient taken to vehicle via wheelchair with all personal belongings, accompanied by staff and family member. No distress noted at time of departure.
== END 2019-04-22 18:47 | disposition home or self-care (01) | DRG 286 ==
LOC: ER 17:33 → TELE 17:34 → TELE-WESTW 04-14 02:44
PROVIDERS: ADMIT Nurse Practitioner; ATTEND Internal Medicine
PROC: B2111ZZ Fluoroscopy of Multiple Coronary Arteries using Low Osmolar Contrast (ICD-10-PCS; principal; 2019-04-16)
PROC: 4A023N7 Measurement of Cardiac Sampling and Pressure, Left Heart, Percutaneous Approach (ICD-10-PCS; 2019-04-16)
PROC: B2151ZZ Fluoroscopy of Left Heart using Low Osmolar Contrast (ICD-10-PCS; 2019-04-16)
DX: I50.43 Acute on chronic combined systolic (congestive) and diastolic (congestive) heart failure (principal); N17.0 Acute kidney failure with tubular necrosis; Z68.43 Body mass index [BMI] 50.0-59.9, adult; D68.69 Other thrombophilia; I42.9 Cardiomyopathy, unspecified; I48.92 Unspecified atrial flutter; J44.0 Chronic obstructive pulmonary disease with (acute) lower respiratory infection; J45.901 Unspecified asthma with (acute) exacerbation; J96.11 Chronic respiratory failure with hypoxia; J96.12 Chronic respiratory failure with hypercapnia; I48.19 Other persistent atrial fibrillation; I27.21 Secondary pulmonary arterial hypertension; N18.3 Chronic kidney disease, stage 3 (moderate); Z79.01 Long term (current) use of anticoagulants; D63.8 Anemia in other chronic diseases classified elsewhere; D69.6 Thrombocytopenia, unspecified; G40.909 Epilepsy, unspecified, not intractable, without status epilepticus; G47.33 Obstructive sleep apnea (adult) (pediatric); G89.4 Chronic pain syndrome; H55.00 Unspecified nystagmus; I25.10 Atherosclerotic heart disease of native coronary artery without angina pectoris; I34.0 Nonrheumatic mitral (valve) insufficiency; I95.1 Orthostatic hypotension; J20.9 Acute bronchitis, unspecified; F32.9 Major depressive disorder, single episode, unspecified; E66.01 Morbid (severe) obesity due to excess calories; T45.515A Adverse effect of anticoagulants, initial encounter; Z53.20 Procedure and treatment not carried out because of patient's decision for unspecified reasons; Z86.73 Personal history of transient ischemic attack (TIA), and cerebral infarction without residual deficits; Z91.14 Patient's other noncompliance with medication regimen; Z95.1 Presence of aortocoronary bypass graft; Z95.2 Presence of prosthetic heart valve; Z99.81 Dependence on supplemental oxygen; Y92.89 Other specified places as the place of occurrence of the external cause; Z79.899 Other long term (current) drug therapy
CPT/HCPCS: 36415; 36600; 71045; 78452; 78582; 80048; 80053; 81001; 82805; 83735; 83880; 84443; 84484; 84702; 85025; 85379; 85610; 85652; 85730; 86038; 86141; 86850; 86900; 86901; 87081; 93017; 93306; 93458; 93970; 94060; 94640; 94644; 95819; 96365; 96375; 97163; 99152; G0378; J0153; J1885; J2250